=== PATIENT | male | born 2000 | race Asian ===

== ENCOUNTER 2024-05-25 16:57 | Emergency (ER) | payer SELFPAY ==
[~2024-05-25] VITALS: Ht 165.1 cm; Wt 52.6 kg
[2024-05-25] MEDS: KETOROLAC 30 MG/ML 1ML VIAL IV ONE (18:05)
[2024-05-25 18:11] LABS: BASO # 0.1 10^3/uL (0.0-0.2); BASO % 0.8 % (0.0-1.0); EOS # 0.4 10^3/uL (0.0-0.5); EOS % 5.7 % (0.0-3.0); HEMATOCRIT 39.9 % (42.0-52.0); HEMOGLOBIN 13.6 g/dl (13.5-17.5); LYMPH % 30.6 % (24.0-44.0); MEAN CORPUSCULAR HEMOGLOBIN 30.8 pg (27.0-33.0); MEAN CORPUSCULAR HGB CONC 34.1 g/dl (32.0-36.5); MEAN CORPUSCULAR VOLUME 90.3 fl (80.0-96.0); MONO # 0.4 10^3/uL (0.0-0.8); MONO % 6.6 % (2.0-8.0); NEUTROPHILS # 3.6 10^3/uL (1.5-8.5); NEUTROPHILS % 56.1 % (36.0-66.0); PLATELET COUNT, AUTOMATED 206 10^3/uL (150-450); RED BLOOD COUNT 4.42 10^6/uL (4.30-6.10); WHITE BLOOD COUNT 6.5 10^3/uL (4.0-10.0)
[2024-05-25 18:31] LABS: LIPASE 35 U/L (12-53)
[2024-05-25 18:34] LABS: ALBUMIN 4.1 G/DL (3.2-5.2); ALKALINE PHOSPHATASE 66 U/L (40-129); ALT/SGPT 16 U/L (7.0-40); AST/SGOT 18 U/L (<34); BILIRUBIN,DIRECT 0.5 MG/DL (<0.4); BILIRUBIN,TOTAL 1.5 MG/DL (0.3-1.2); BLOOD UREA NITROGEN 11 MG/DL (9-23); CALCIUM LEVEL 9.4 MG/DL (8.5-10.1); CARBON DIOXIDE LEVEL 27 MMOL/L (20-31); CHLORIDE LEVEL 107 MMOL/L (98-107); CREATININE FOR GFR 0.93 MG/DL (0.70-1.30); GLOMERULAR FILTRATION RATE > 60.0 (>60); GLUCOSE, FASTING 95 MG/DL (60-100); POTASSIUM SERUM 4.3 MMOL/L (3.5-5.1); SODIUM LEVEL 141 MMOL/L (136-145); TOTAL PROTEIN 6.9 G/DL (5.7-8.2)
[2024-05-25] MEDS ORDERED: ISOVUE-370 76% 100ML VIAL As Ordered ONE (18:43)
[2024-05-25] MEDS: MAGNESIUM CITRATE 300ML BTL PO ONE (19:35)
[2024-05-25] MEDS ORDERED: MIRA3350 PO (20:18)
[2024-05-25 20:20] VITALS: BP 107/58; TEMP 98.4; O2SAT 96
== END 2024-05-25 20:55 | disposition home or self-care (01) ==
LOC: M ED 16:57
DX: R10.9 Unspecified abdominal pain (principal); K59.00 Constipation, unspecified; K57.30 Diverticulosis of large intestine without perforation or abscess without bleeding; Z79.899 Other long term (current) drug therapy
CPT/HCPCS: 74177; 80053; 80076; 83690; 85025; 96374; 99284; J1885; Q9967

== ENCOUNTER 2024-06-06 22:25 | Emergency (ER) | payer SELFPAY ==
[~2024-06-06] VITALS: Ht 165.1 cm; Wt 54.7 kg
[~2024-06-06 22:25] MED LIST: MIRA3350 PO
[2024-06-07] MEDS ORDERED: IBUP-1022 PO (01:36)
[2024-06-07] MEDS ORDERED: AMOX875T2 PO (01:36)
[2024-06-07 01:43] VITALS: BP 99/56; TEMP 98.7; O2SAT 99
[2024-06-07] MEDS: AUGMENTIN 875 MG TAB PO ONE (01:46)
[2024-06-07] MEDS: IBUPROFEN 600MG TAB PO ONE (01:46)
== END 2024-06-07 01:57 | disposition home or self-care (01) ==
LOC: M ED 22:25
DX: H66.93 Otitis media, unspecified, bilateral (principal)